=== PATIENT | female | born 1995 | race Caucasian/White ===

== ENCOUNTER 2020-03-31 14:56 | Emergency (ER) | payer OTHER ==
[~2020-03-31] VITALS: Ht 157.5 cm; Wt 63.7 kg
[2020-03-31] MEDS ORDERED: PREN1CHW6 PO (15:04)
[2020-03-31] MEDS ORDERED: ONDANSETRON 4MG/2ML VIAL IV ONE (16:15)
[2020-03-31] MEDS ORDERED: NS 1,000 ML IV ONE (16:15)
[2020-03-31 16:46] LABS: BASO # 0.1 10^3/uL (0.0-0.2); BASO % 0.5 % (0.0-1.0); EOS # 0.3 10^3/uL (0.0-0.5); EOS % 2.6 % (0.0-3.0); HEMATOCRIT 42.3 % (36.0-47.0); HEMOGLOBIN 13.8 g/dl (12.0-15.5); LYMPH % 18.4 % (24.0-44.0); MEAN CORPUSCULAR HEMOGLOBIN 28.5 pg (27.0-33.0); MEAN CORPUSCULAR HGB CONC 32.6 g/dl (32.0-36.5); MEAN CORPUSCULAR VOLUME 87.4 fl (80.0-96.0); MONO # 0.6 10^3/uL (0.0-0.8); MONO % 5.6 % (0.0-5.0); NEUTROPHILS # 7.9 10^3/uL (1.5-8.5); NEUTROPHILS % 72.5 % (36.0-66.0); PLATELET COUNT, AUTOMATED 251 10^3/uL (150-450); RED BLOOD COUNT 4.84 10^6/uL (4.00-5.40); WHITE BLOOD COUNT 10.9 10^3/uL (4.0-10.0)
[2020-03-31 17:33] LABS: ALBUMIN 3.6 GM/DL (3.2-5.2); ALT/SGPT 27 U/L (12-78); BILIRUBIN,DIRECT < 0.1 MG/DL (0.0-0.2); BILIRUBIN,TOTAL 0.5 MG/DL (0.2-1.0); BLOOD UREA NITROGEN 13 MG/DL (7-18); CALCIUM LEVEL 9.1 MG/DL (8.5-10.1); CARBON DIOXIDE LEVEL 27 MEQ/L (21-32); CHLORIDE LEVEL 104 MEQ/L (98-107); CREATININE FOR GFR 0.57 MG/DL (0.55-1.30); GLOMERULAR FILTRATION RATE > 60.0 (>60); GLUCOSE, FASTING 76 MG/DL (70-100); HCG, SERUM QUANTITATIVE 47019 MIU/ML; LIPASE 138 U/L (73-393); POTASSIUM SERUM 3.9 MEQ/L (3.5-5.1); SODIUM LEVEL 138 MEQ/L (136-145); TOTAL PROTEIN 7.2 GM/DL (6.4-8.2)
[2020-03-31] MEDS ORDERED: REGL10TA6 PO (17:58)
[2020-03-31 18:24] VITALS: BP 110/68
== END 2020-03-31 18:26 | disposition home or self-care (01) ==
LOC: M ED 14:56
DX: O21.9 Vomiting of pregnancy, unspecified (principal); Z3A.00 Weeks of gestation of pregnancy not specified
CPT/HCPCS: 80048; 80076; 81001; 83690; 84702; 85025; 87088; 87186; 96361; 96374; 99284; J2405

== ENCOUNTER 2020-08-02 19:13 | Outpatient (CLI) | payer OTHER ==
[~2020-08-02] VITALS: Ht 157.5 cm; Wt 79.0 kg
[~2020-08-02 19:13] MED LIST: PREN1CHW6 PO; REGL10TA6 PO
[2020-08-02] MEDS ORDERED: LR 1,000 ML IV ONE (19:55)
[2020-08-02 20:22] VITALS: BP 111/69
[2020-08-02 20:44] LABS: HEMATOCRIT 40.2 % (36.0-47.0); HEMOGLOBIN 13.3 g/dl (12.0-15.5); MEAN CORPUSCULAR HEMOGLOBIN 28.5 pg (27.0-33.0); MEAN CORPUSCULAR HGB CONC 33.1 g/dl (32.0-36.5); MEAN CORPUSCULAR VOLUME 86.1 fl (80.0-96.0); PLATELET COUNT, AUTOMATED 219 10^3/uL (150-450); RED BLOOD COUNT 4.67 10^6/uL (4.00-5.40); WHITE BLOOD COUNT 14.7 10^3/uL (4.0-10.0)
[2020-08-02 20:56] LABS: ALBUMIN 2.7 GM/DL (3.2-5.2); ALT/SGPT 34 U/L (12-78); BILIRUBIN,TOTAL 0.2 MG/DL (0.2-1.0); BLOOD UREA NITROGEN 12 MG/DL (7-18); CARBON DIOXIDE LEVEL 23 MEQ/L (21-32); CHLORIDE LEVEL 107 MEQ/L (98-107); CREATININE FOR GFR 0.55 MG/DL (0.55-1.30); GLOMERULAR FILTRATION RATE > 60.0 (>60); GLUCOSE, FASTING 81 MG/DL (70-100); POTASSIUM SERUM 4.1 MEQ/L (3.5-5.1); SODIUM LEVEL 139 MEQ/L (136-145); TOTAL PROTEIN 6.3 GM/DL (6.4-8.2)
[2020-08-02] MEDS ORDERED: LOPERAMIDE 2 MG CAPLET PO ONE (21:50)
[2020-08-02 22:00] VITALS: BP 132/75
[2020-08-02] MEDS ORDERED: LR 1,000 ML IV SCH (22:05)
--- NOTE | 2020-08-02 22:35 | IPNPDOC ---
Text Note Date of Service The patient was seen on 08/02/20. NOTE 24 yo at 30+1 weeks gestation presented to L&D with the complaint of dec reased movement, diarrhea, and intermittent cramping. She reports diarrhea since Sunday, worsening on Sunday, improving on Sunday, and then getting much much worse today. She reports 10 episodes of diarrhea today. She also reports not feeling her baby move as much as usual today and some pelvic cramping. She denies any fevers/chills, n/v, bleeding, discharge, or leakage of fluid. She also denies recent travel or sick contacts. Chaperoned by RN Vitals - VSS, afebrile, normotensive, non tachycardic General - Laying in bed, tired appeared, AAOX3 ABdomen - Gravid uterus. No fundal tenderess Pelvic - Normal external genitalia. Speculum inserted into the vagina and the cervix was visualized. FFN swab performed in posterior fornix. Speculum removed. Cervix closed/thick/high to digital exam. FHR tracing - Cat I tracing with moderate variability, +accels, no decels. Contractions regular, Q3-5 minutes apart. Ultimately spaced after several hours UA - dirty catch. 1+ leuk est. 7 wbcs. negative bacteria, negative nitrite CBC - WBC 14.7 CMP - unremarkable FFN - positive COVID19 - negative Patient given 2L during stay. Kept overnight for observation. Repeat cervical exam in the AM (~8 hours later) was unchanged at closed/thick/high. Contractions ultimately resolved after several hours. Loperamide given for diarrhea with improvement in symptoms (no further episodes of diarrhea). Suspect viral GI syndrome and dehydration as cause of symptoms. COVID-19 negati ve on PCR. No overt evidence of labor, especially in light of an unchanged cervix for 8 hours. Reassuring status. patient discharged with return precautions. All questions answered. 2 hours of patient care Aleksandra Kwon I+O Aleksandra ALANIS I+O Laboratory Tests 08/02/20 20:14 Vital Signs Date Time Temp Pulse Resp B/P (MAP) Pulse Ox O2 Delivery O2 Flow Rate FiO2 08/02/20 22:03 98.6 18 LILLIANA OLIVEIRA DO August 02, 2020 22:35
[2020-08-03 05:37] VITALS: BP 131/81
== END 2020-08-03 06:15 | disposition home or self-care (01) ==
LOC: M LDO 19:13
PROVIDERS: ATTEND Obstetrics & Gynecology
DX: O36.8130 Decreased fetal movements, third trimester, not applicable or unspecified (principal); Z3A.30 30 weeks gestation of pregnancy; O26.893 Other specified pregnancy related conditions, third trimester; R19.7 Diarrhea, unspecified; Z20.822 Contact with and (suspected) exposure to COVID-19
CPT/HCPCS: 59025; 80053; 81001; 82731; 85027; 87088; 96360; 96361; G0378; G0463; U0002

== ENCOUNTER 2020-09-07 17:55 | Inpatient (IN) | payer OTHER ==
[~2020-09-07] VITALS: Ht 157.5 cm; Wt 89.3 kg
[2020-09-07] VITALS (35 sets, daily range): BP systolic 113–246; BP diastolic 71–158
[2020-09-07] MEDS ORDERED: TUMS750C5 PO (18:19)
[2020-09-07] MEDS ORDERED: LR 1,000 ML IV ONE (18:40)
[2020-09-07] MEDS ORDERED: MAGNESIUM *L&D* 4GM/100ML BAG (40MG/ML) IV ONE ×2 (18:45→21:15)
[2020-09-07] MEDS ORDERED: BETAMETHASONE SOLUSPAN 6MG/ML 5ML VIAL (J0702 PER 3MG) IM SCH (18:45)
[2020-09-07] MEDS ORDERED: MAG Sulf (OBGYN) 20GM/500ML 20,000 MG in IV 1 EA IV SCH (18:50)
[2020-09-07] MEDS ORDERED: BICITRA 30ML SOLN UDC As Ordered ONE (18:56)
[2020-09-07] MEDS ORDERED: ceFAZolin 2 GM/D5W 50 ML IV BAG (J0690 PER 500MG) As Ordered ONE (18:57)
[2020-09-07] MEDS ORDERED: AZITHROMYCIN INJ 500MG VIAL (J0456 PER 500MG) As Ordered ONE (18:57)
[2020-09-07] MEDS ORDERED: BICITRA 30ML SOLN UDC PO ONE (19:00)
[2020-09-07] MEDS ORDERED: AZITHROMYCIN INJ 500 MG, VIAL MATE ADAPTER 1 EACH in NS 250 ML IV ONE (19:00)
[2020-09-07] MEDS ORDERED: ceFAZolin SOD 2 GM in IV 1 EA IV ONE (19:00)
[2020-09-07] MEDS ORDERED: ACETAMINOPHEN 650 MG SUPP PR SCH (19:00)
[2020-09-07] MEDS ORDERED: BUPIVACAINE HCL 0.25% 10ML VIAL SC SCH (19:05)
[2020-09-07] MEDS ORDERED: MORPHINE PRES-FREE INJ 10 MG/10 ML VIAL (J2274) As Ordered ONE (19:20)
[2020-09-07] MEDS ORDERED: OXYTOCIN 30 UNITS IN 0.9% NaCl 500ML IV BAG (J2590) As Ordered ONE (19:21)
--- NOTE | 2020-09-07 19:23 | REP ---
INDICATION: late decelerations 35 weeks need bpp efwt cervical length. COMPARISON: None. TECHNIQUE: Real-time sonographic evaluation of gravid uterus performed. FINDINGS: There is an intrauterine gestation, estimated gestational age is reportedly 35 weeks 2 days, EDC 10/10/2020. The heart rate is 161 beats per minute. The position is cephalic. The placenta is anterior and grade 3. There is no previa. The cervix is closed and measures 3.0 cm in length. Diffuse heterogeneous hypoechoic area behind the placenta does not demonstrate internal blood flow with Doppler evaluation. This appears to represent a diffuse retroplacental abruption. IMPRESSION: Live intrauterine gestation 35 weeks 2 days reported age. heart rate 161 beats per minute. There are findings most consistent with retro placental abruption/hemorrhage. Dr. Fisher was present for the ultrasound. <Electronically signed by Bryson Jean > 09/07/201918
[2020-09-07 19:27] LABS: HEMATOCRIT 41.2 % (36.0-47.0); HEMOGLOBIN 13.8 g/dl (12.0-15.5); MEAN CORPUSCULAR HEMOGLOBIN 28.8 pg (27.0-33.0); MEAN CORPUSCULAR HGB CONC 33.5 g/dl (32.0-36.5); MEAN CORPUSCULAR VOLUME 85.8 fl (80.0-96.0); PLATELET COUNT, AUTOMATED 212 10^3/uL (150-450); WHITE BLOOD COUNT 13.6 10^3/uL (4.0-10.0)
[2020-09-07] MEDS ORDERED: diphenhydrAMINE 50MG/ML VIAL (J1200) IV PRN (19:30)
[2020-09-07] MEDS ORDERED: ONDANSETRON 4MG/2ML VIAL IV PRN ×2 (19:30→21:05)
[2020-09-07] MEDS ORDERED: NALBUPHINE HCL 10 MG/ML AMP (J2300) IV PRN (19:30)
[2020-09-07] MEDS ORDERED: METOCLOPRAMIDE INJ 10MG/2ML VIAL (J2765 PER 1) IV PRN (19:30)
[2020-09-07] MEDS ORDERED: NALOXONE INJ 0.4MG/1ML VIAL (J2310 PER 1MG) IV PRN ×2 (19:30)
[2020-09-07 19:46] LABS: ALT/SGPT 16 U/L (12-78); BILIRUBIN,TOTAL 0.2 MG/DL (0.2-1.0); CREATININE FOR GFR 0.74 MG/DL (0.55-1.30); GLOMERULAR FILTRATION RATE > 60.0 (>60); LDH LACTATE DEHYDROGENASE 236 U/L (84-246)
[2020-09-07 20:10] LABS: CORD GAS ABE V -18.8; CORD GAS HCO3 V 13.3 MEQ/L; CORD GAS O2 SAT V 45.8 %; CORD GAS PCO2 V 56.6 mmHg; CORD GAS PO2 V 23.8 mmHg; CORD GAS SBC V 10.3 MEQ/L
[2020-09-07 20:12] LABS: CORD GAS ABE A -17.6; CORD GAS HCO3 A 15.9 MEQ/L; CORD GAS O2 SAT A 36.8 %; CORD GAS PCO2 A 73.3 mmHg; CORD GAS PO2 A 22.6 mmHg; CORD GAS SBC A 10.8 MEQ/L; CORD GAS TCO2 A 18.2 MEQ/L
[2020-09-07 20:16] LABS: CORD GAS PH V 6.988 UNITS
[2020-09-07 20:17] LABS: CORD GAS PH A 6.955 UNITS
[2020-09-07] MEDS ORDERED: MEASLES,MUMPS,RUBELLA VACCINE INJ (MMR-II) (90707) SC SCH (20:35)
[2020-09-07] MEDS ORDERED: ACETAMINOPHEN 650 MG SUPP PR PRN (20:35)
[2020-09-07] MEDS ORDERED: ACETAMINOPHEN TAB 650MG DOSE (2X325MG) PO PRN (20:35)
[2020-09-07] MEDS ORDERED: OXYTOCIN DRIP 30 UNITS in IV 1 EA IV SCH (20:35)
[2020-09-07] MEDS ORDERED: ANUSOL HC CREAM 30GM TOP PRN (20:35)
[2020-09-07] MEDS ORDERED: SIMETHICONE 80MG CHEW TAB PO PRN (20:35)
[2020-09-07] MEDS ORDERED: DOCUSATE SODIUM 100MG CAPSULE PO PRN (20:35)
[2020-09-07] MEDS ORDERED: RHOGAM 300 MCG (1500 IU) INJ (J2790) IM SCH (20:35)
[2020-09-07] MEDS ORDERED: METHYLERGONOVINE MALEATE 0.2 MG TAB PO PRN (20:35)
[2020-09-07] MEDS ORDERED: MOM 30ML SUSPENSION UDC PO PRN (20:35)
[2020-09-07] MEDS ORDERED: LABETALOL 100MG/20ML VIAL IV STA (20:43)
[2020-09-07] MEDS ORDERED: oxyCODONE 5MG TAB PO PRN (21:05)
[2020-09-07] MEDS ORDERED: fentaNYL 100 MCG/2 ML INJECTION (J3010) IV PRN (21:05)
[2020-09-07] MEDS ORDERED: KETOROLAC 30 MG/ML 1ML VIAL IV PRN (21:05)
[2020-09-07] MEDS ORDERED: MEPERIDINE INJ 25 MG/ML VIAL (J2175) As Ordered ONE (21:07)
[2020-09-07] MEDS: MEPERIDINE INJ 25 MG/ML VIAL (J2175) IV PRN ×2 (21:10→21:33)
--- NOTE | 2020-09-07 21:47 | HPEPDOC ---
Obstetrical History & Physical General Date of Admission Sep 07, 2020 at 18:43 NAME: KARINA LUONG DATE OF : 1995 AGE: 25 SEX: F REPORT #: [id number] ROOM: [facility] TECHNOLOGIST: SARA DOCTOR: Julian Fisher MD Ordered for Date&Time: 09/07/20 183 cc: [~ rep ct ivnm] Service Date&Time: 09/07/20 190 EXAMINATION REQUESTED: Obs. Limited, NORBERTO US REASON FOR PATIENT VISIT: LABOR REASON FOR EXAM/COMMENT: late decelerations 35 weeks need bpp efwt cervical length INDICATION: late decelerations 35 weeks need bpp efwt cervical length. COMPARISON: None. TECHNIQUE: Real-time sonographic evaluation of gravid uterus performed. FINDINGS: There is an intrauterine gestation, estimated gestational age is reportedly 35 weeks 2 days, EDC 10/10/2020. The heart rate is 161 beats per minute. The position is cephalic. The placenta is anterior and grade 3. There is no previa . The cervix is closed and measures 3.0 cm in length. Diffuse heterogeneous hypoechoic area behind the placenta does not demonstrate internal blood flow with Doppler evaluation. This appears to represent a diffuse retroplacental abruption. IMPRESSION: Live intrauterine gestation 35 weeks 2 days reported age. heart rate 161 beats per minute. There are findings most consistent with retro placental abruption/hemorrhage. Dr. Fisher was present for the ultrasound. <Electronically signed by Bryson Jean > 09/07/201918 DD: Bryson Jean MD, MD 09/07/201910 DT: ERIN 09/07/201918 Primary Care Physician: Julian Fisher MD History of Present Illness Chief Complaint: Contractions, pre-term Information Provided By: Patient Age: 24 : 1 Term: 0 Pre-term: 0 Abortions: 0 Livin Care Care: Good Care Number of Visits: 8 Dating Final EDC: Oct 10, 2020 Final EDC for Daily Update: Oct 10, 2020 Final EDC by: LMP LMP: Jan 04, 2020 1st Trimester Date: Mar 12, 2020 Weeks + Days: 9.5 Estimated Date of Confinement: Oct 10, 2020 EGA at Admission: 35.2 Antepartum Course Diagnos(e)s depression Height (inches): 62 Pre- weight (lbs.): 138 Admission Weight (lbs.): 191 Change in Weight (lbs.): 53 Past Medical History Past Obstetrical History : 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 history Past Medical History Medical History depression Surgical History: [place] teeth Family History Significant Family History: Hypertension Social History Social history non smoker no etoh no vaping no recreational drugs good support Marital Status: Family situation: Spouse/partner home Psychosocial History: Depression * Smoker: non-smoker Alcohol: Denies Abuse Violence Screening Have you been hit/kicked/slapp: No Have you been sexually assault: No Imunizations Tdap status: current Influenza Status: current Allergies Coded Allergies: No Known Allergies (Unverified , 03/31/20) Medications Scheduled Vit37/Iron/Folic Acid (Prenata Chewable Tablet) 1 Each Tab.chew, 1 TAB PO DAILY Scheduled PRN Calcium Carbonate (Tums) 300 Mg Tab.chew, 1 TAB PO Q6HP PRN for INDIGESTION Physical Examination Physical Examination GENERAL: Alert and oriented times three. BREAST: . ABDOMEN: Gravid and non-tender to touch. FETUS: Is vertex (VTX) by sterile vaginal examination (SVE), fetus is vertex (VTX) by Jean-Pierre. HEART RATE: Regular rate and rhythm. LUNGS: Clear to auscultation (CTA). EXTREMITIES: No edema. No clonus. Deep tendon reflexes (DTRs) + . Vital Signs/I&O Vital Signs Date Time Temp Pulse Resp B/P (MAP) Pulse Ox O2 Delivery O2 Flow Rate FiO2 09/07/20 18:10 98.8 66 20 137/84 (101) 98 Room Air Laboratory Data 24H LABS Laboratory Tests 2 09/07/20 18:39: Urine Color YELLOW, Urine Appearance CLOUDYH, Urine pH 6.0, Urine Specific [place] 1.024, Urine Protein 3+H, Urine Glucose (UA) NEGATIVE, Urine Ketones NEGATIVE, Urine Blood 1+H, Urine Nitrite NEGATIVE, Urine Bilirubin NEGATIVE, Urine Urobilinogen 0.2, Urine Leukocyte Esterase NEGATIVE, Urine WBC (Auto) 12H, Urine RBC (Auto) 3, Urine Hyaline Casts (Auto) 0, Urine Bacteria (Auto) NEGATIVE, Urine Squamous Epithelial Cells 18, Urine Mucus (Auto) SMALL, Urine Sperm (Auto) , Urine Random Creatinine 152.0, Urine Random Total Protein 1795.0H 09/07/20 18:41: Nucleated Red Blood Cells % (auto) 0.0, Glomerular Filtration Rate > 60.0, Uric Acid 8.0H, Total Bilirubin 0.2, Aspartate Amino Transf (AST/SGOT) 19, Alanine Aminotransferase (ALT/SGPT) 16, Lactate Dehydrogenase 236, Syphilis Serology N ONREACTIVE 09/07/20 19:46: Cord Arterial Blood pH 6.955*L, Cord Arterial Blood PCO2 73.3, Cord Arterial Blood PO2 22.6, Cord Arterial Blood HCO3 15.9, Cord Arterial Blood Total CO2 18.2, Cord Arterial Blood Base Excess -17.6, Cord Arterial Base Excess (Standard 10.8, Cord Arterial Bld Oxygen Saturation 36.8, Cord Venous Blood pH 6.988*L, Cord Venous Blood PCO2 56.6, Cord Venous Blood PO2 23.8, Cord Venous Blood HCO3 13.3, Cord Venous Blood Total CO2 15.0, Cord Venous Base Excess (Actual) -18.8, Cord Venous Base Excess (Standard) 10.3, Cord Venous Blood Oxygen Saturation 45. 8 CBC/BMP Laboratory Tests 09/07/20 18:41 Microbiology Microbiology 09/07/20 Urine Culture, Received Pending Pertinent Laboratoy Data Blood Type: B+ RBC Antibody Screen: Negative HIV: Negative Hepatitis B: Negative Hepatitis C: Negative Rapid Plasma Reagin: Nonreactive Rubella: Immune Varicella: Immune Chlamydia/Gonorrhea: Negative Group B Streptococcus: Negative Cystic Fibrosis: Negative Anatomy Ultrasound Normal Anatomy: Yes Placenta Previa: No Steroid Therapy Steroid Therapy: No Vaginal Examination Dilation: 2cm Effacement: 40% Station: -3 Cervical Consistency: Medium Cervical Position: Posterior Presentation: Cephalic presentation Position: Vertex (occiput) Assessment Heart Rate (FHR): 120 Variability: Minimal Accelerations: None Decelerations: Late Heart Patterns: Bradycardia Tocometer Contractions: Yes Frequency: regular, every 1-5 min. Duration: less than 60 seconds Strength: palpated as moderate Assessment/Plan Assessment 25-year-old (G)1 para (P0 at 35.3 weeks by [9.2 week ultrasound. Presents to Labor and Delivery (L&D) painful contractions . Plan Admit and orient. Services Mgr and consent. Diet: npo Group B Streptococcus (GBS) unknown Labs and intravenous (IV) per unit protocol. Counseled on Pitocin . Lactated Ringers (LR): Bolus 1000 mL, then at 125 mL/hr. Anticipate emergency cs for concealed abruptio C-S as appropriate. Labor and Delivery Counseling plan of care stat us at bedside r/out concealed abruptio, cbc cmp pre eclamptic work up prepare for emergency cs notify neonatology Julian Fisher MD Sep 07, 2020 21:45
--- NOTE | 2020-09-07 22:20 | DNPDOC ---
[facility] Delivery Note Delivery Note Item Value Date Time Cord Arterial Blood pH 6.955 UNITS *L 09/07/201945 Cord Arterial Blood PCO2 73.3 mmHg 09/07/201945 Cord Arterial Blood PO2 22.6 mmHg 09/07/201945 Cord Arterial Blood HCO3 15.9 MEQ/L 09/07/201945 Cord Arterial Blood Total CO2 18.2 MEQ/L 09/07/201945 Cord Arterial Blood Base Excess -17.6 09/07/201945 Cord Arterial Base Excess (Standard 10.8 MEQ/L 09/07/201945 Cord Arterial Bld Oxygen Saturation 36.8 % 09/07/201945 Cord Venous Blood pH 6.988 UNITS *L 09/07/201945 Cord Venous Blood PCO2 56.6 mmHg 09/07/201945 Cord Venous Blood PO2 23.8 mmHg 09/07/201945 Cord Venous Blood HCO3 13.3 MEQ/L 09/07/201945 Cord Venous Blood Total CO2 15.0 MEQ/L 09/07/201945 Cord Venous Base Excess (Actual) -18.8 09/07/201945 Cord Venous Base Excess (Standard) 10.3 MEQ/L 09/07/201945 Cord Venous Blood Oxygen Saturation 45.8 % 09/07/201945 DATE OF DELIVERY: 09/07/20 PREDELIVERY DIAGNOSIS: 35.4 weeks' gestation and labor. POST DELIVERY DIAGNOSIS: Delivered. PROCEDURE: emergency c/s abruptio placenta WARP PREPARER: Dr.e madeline velasquez ANESTHESIA: spinal and local ESTIMATED BLOOD LOSS: 500 ml mL. FINDINGS: 4pound 4 ounce female , Score 1/6/7 nuchal cord times x 1 DELIVERY SUMMARY: Patient is a 25-year-old 1 now para 1 who was admitted to labor and delivery for pre term abruptio placenta concealed Julian Fisher MD Sep 07, 2020 22:19
--- NOTE | 2020-09-07 22:56 | IPNPDOC ---
Text Note Date of Service Item Value Date Time Urine Random Creatinine 152.0 MG/DL 09/07/20 1839 Urine Random Total Protein 1795.0 MG/DL H 09/07/20 183 Item Value Date Time Urine Color YELLOW 09/07/20 183 Urine Appearance CLOUDY H 09/07/20 183 Urine pH 6.0 UNITS 09/07/20 183 Urine Specific [place] 1.024 09/07/20 183 Urine Protein 3+ mg/dL H 09/07/20 183 Urine Glucose (UA) NEGATIVE mg/dL 09/07/20 183 Urine Ketones NEGATIVE mg/dL 09/07/20 183 Urine Blood 1+ H 09/07/20 183 Urine Nitrite NEGATIVE 09/07/20 183 Urine Bilirubin NEGATIVE 09/07/201838 Urine Urobilinogen 0.2 mg/dL 09/07/201838 Urine Leukocyte Esterase NEGATIVE 09/07/20 183 Urine WBC (Auto) 12 /HPF H 09/07/20 183 Urine RBC (Auto) 3 /HPF 09/07/20 183 Urine Hyaline Casts (Auto) 0 /LPF 09/07/20 183 Urine Bacteria (Auto) NEGATIVE 09/07/20 183 Urine Squamous Epithelial Cells 18 /HPF 09/07/20 183 Urine Mucus (Auto) SMALL 09/07/20 183 Urine Random Creatinine 152.0 MG/DL 09/07/20 1839 Urine Random Total Protein 1795.0 MG/DL H 09/07/20 183 Item Value Date Time Creatinine 0.74 MG/DL 09/07/20 1841 Glomerular Filtration Rate > 60.0 09/07/20 1841 Uric Acid 8.0 MG/DL H 09/07/20 1841 Total Bilirubin 0.2 MG/DL 09/07/20 1841 Aspartate Amino Transf (AST/SGOT) 19 U/L 09/07/20 1841 Alanine Aminotransferase (ALT/SGPT) 16 U/L 09/07/20 1841 Lactate Dehydrogenase 236 U/L 09/07/20 1841 Item Value Date Time Bedside Glucose (Misc Panel) 102 MG/DL 09/07/202143 Bedside Glucose (Misc Panel) 72 MG/DL 09/07/202116 Bedside Glucose (Misc Panel) 59 MG/DL L 09/07/202100 Item Value Date Time Vital Signs Origin Phase I 09/07/202204 Vital Signs Origin Phase I 09/07/202209 Vital Signs Origin Phase I 09/07/202211 Vital Signs Origin Phase I 09/07/202214 Vital Signs Label Value Date Time Pulse 73 09/07/202204 Blood Pressure Assessment 175/82 (113) 09/07/202204 Bedside Pulse Oximetry 100 % 09/07/202204 Pulse 68 09/07/202209 Blood Pressure Assessment 207/100 (135) 09/07/202209 Bedside Pulse Oximetry 99 % 09/07/202209 Blood Pressure Assessment 171/96 (121) 09/07/202211 Pulse 75 09/07/202214 Bedside Pulse Oximetry 99 % 09/07/202214 Pulse 67 09/07/202219 Blood Pressure Assessment 177/97 (123) 09/07/202223 The patient was seen on 09/07/20. NOTE Called back to pac u re patient immediately post op rigors shaking violently , semi responsive reviewed vital signs bp and p and respirations normal chest clear,minimal reflexes no pain no cardiac issues noted. did blood sugars finger stick 59 gave glucose redid sugar now 74 more glucose 102 now feeling better awake alert responsive to questions no shaking now. plan of care involves iv mag due to elevated uric acid at 8 p/c ratio 11.01 all other chemestries normal . had sever range blood pressures will place on bp protocol 20 mg iv labetalol if bp 160/100 monitor in and out planned repeat blood work in am ZEKE,Aleksandra, I+O VSAleksandra, I+O Laboratory Tests 09/07/20 18:41 Vital Signs Date Time Temp Pulse Resp B/P (MAP) Pulse Ox O2 Delivery O2 Flow Rate FiO2 09/07/20 18:10 98.8 66 20 137/84 (101) 98 Room Air Julian Fisher MD Sep 07, 2020 22:50
[2020-09-07] MEDS: LR 1,000 ML IV SCH (23:39)
[2020-09-07] MEDS: KETOROLAC 30 MG/ML 1ML VIAL IV SCH (23:40)
[2020-09-08] VITALS (36 sets, daily range): BP systolic 127–166; BP diastolic 73–109
[2020-09-08] MEDS ORDERED: LABETALOL 100MG/20ML VIAL IV STA (00:10)
[2020-09-08] MEDS: MAG Sulf (OBGYN) 20GM/500ML 20,000 MG in IV 1 EA IV SCH ×3 (00:19→19:43)
[2020-09-08] MEDS: KETOROLAC 30 MG/ML 1ML VIAL IV SCH ×3 (05:47→17:32)
--- NOTE | 2020-09-08 05:58 | IPNPDOC ---
Text Note Date of Service Intake & Output Label Value Date Time Total Out 875 ml 09/08/20 0000(24 hrs) Total Out 1000 ml 09/07/20 0000(24 hrs) Total In 817 ml 09/08/20 0000(24 hrs) Total In 1050 ml 09/07/20 0000(24 hrs) Output, Urine Amount 875 ml 09/08/20 0000(24 hrs) Output, Estimated Blood Loss Amount 1000 ml 09/07/20 0000(24 hrs) Intake, IV Amount 817 ml 09/08/20 0000(24 hrs) Intake, IV Amount 1050 ml 09/07/20 0000(24 hrs) Item Value Date Time Patient Weight 89.3 kg 09/07/20 1804 Vital Signs Label Value Date Time Patient Temperature 98.4 degrees F 09/08/20 0426 Temperature Source Temporal 09/08/20 0426 Pulse 93 09/08/20 0426 Respiratory Rate 20 bpm 09/08/20 0426 Blood Pressure Assessment 135/79 (97) 09/08/20 0426 Source Automatic Cuff (NIBP) Blood Pressure Assessment 140/83 (102) 09/08/20 0400 Source Automatic Cuff (NIBP) Pulse 100 09/08/20 0400 Blood Pressure Assessment 141/80 (100) 09/08/20 0326 Source Automatic Cuff (NIBP) Pulse 90 09/08/20 0326 Pulse 93 09/08/20 0256 Blood Pressure Assessment 134/79 (97) 09/08/20 0256 Source Automatic Cuff (NIBP) Blood Pressure Assessment 138/73 (94) 09/08/20 0226 Source Automatic Cuff (NIBP) Pulse 92 09/08/20 0156 Blood Pressure Assessment 157/93 (114) 09/08/20 0156 Source Automatic Cuff (NIBP) Pulse 93 09/08/20 0126 Blood Pressure Assessment 153/88 (109) 09/08/20 0126 Source Automatic Cuff (NIBP) Respiratory Rate 20 bpm 09/08/20 0125 Patient Temperature 99.2 degrees F 09/08/20 0125 Blood Pressure Assessment 150/95 (113) 09/08/20 0112 Source Automatic Cuff (NIBP) Pulse 91 09/08/20 0112 Blood Pressure Assessment 154/92 (112) 09/08/20 0111 Source Automatic Cuff (NIBP) Blood Pressure Assessment 161/87 (111) 09/08/20 0056 Source Automatic Cuff (NIBP) Pulse 94 09/08/20 0056 Blood Pressure Assessment 154/95 (114) 09/08/20 0040 Source Automatic Cuff (NIBP) Pulse 95 09/08/20 0040 Blood Pressure Assessment 155/98 (117) 09/08/20 0026 Source Automatic Cuff (NIBP) Pulse 102 09/08/20 0026 Blood Pressure Assessment 155/93 (113) 09/08/20 0022 Source Automatic Cuff (NIBP) Pulse 95 09/08/20 0022 Pulse 91 09/08/20 0017 Blood Pressure Assessment 157/91 (113) 09/08/20 0017 Source Automatic Cuff (NIBP) Blood Pressure Assessment 161/87 09/08/20 0013 Pulse 116 09/08/20 0013 Pulse 92 09/08/20 0009 Blood Pressure Assessment 161/87 (111) 09/08/20 0009 Source Automatic Cuff (NIBP) Pulse 96 09/08/20 0007 Blood Pressure Assessment 166/109 (128) 09/08/20 0007 Source Automatic Cuff (NIBP) Blood Pressure Assessment 163/81 (108) 09/07/20 2352 Source Automatic Cuff (NIBP) Pulse 96 09/07/20 2352 Pulse 84 09/07/20 2338 Blood Pressure Assessment 177/84 (115) 09/07/20 2338 Source Automatic Cuff (NIBP) Blood Pressure Assessment 136/96 (109) 09/07/20 2323 Source Automatic Cuff (NIBP) Pulse 80 09/07/20 2323 Patient Temperature 99.2 degrees F 09/07/20 2322 Temperature Source Temporal 09/07/20 2322 Blood Pressure Assessment 152/106 (121) 09/07/20 2315 Source Automatic Cuff (NIBP) Pulse 90 09/07/20 2315 Blood Pressure Assessment 156/91 (112) 09/07/20 2310 Source Automatic Cuff (NIBP) Pulse 76 09/07/20 2310 Blood Pressure Assessment 161/96 (117) 09/07/20 2305 Source Automatic Cuff (NIBP) Pulse 75 09/07/20 2305 Pulse 74 09/07/20 2300 Blood Pressure Assessment 161/90 (113) 09/07/20 2300 Source Automatic Cuff (NIBP) Blood Pressure Assessment 164/96 (118) 6/8/21 2254 Source Automatic Cuff (NIBP) Blood Pressure Assessment 164/96 09/07/202253 Pulse 64 09/07/202238 Blood Pressure Assessment 157/90 (112) 09/07/202238 Source Automatic Cuff (NIBP) Pulse 67 09/07/202219 Blood Pressure Assessment 177/97 (123) 09/07/202223 Bedside Pulse Oximetry 99 % 09/07/202214 Blood Pressure Assessment 171/96 (121) 09/07/202211 Source Automatic Cuff (NIBP) Blood Pressure Assessment 171/96 (121) 09/07/202211 Pulse 71 09/07/202211 Blood Pressure Assessment 207/100 (135) 09/07/202209 Blood Pressure Assessment 207/100 (135) 09/07/202209 Source Automatic Cuff (NIBP) Blood Pressure Assessment 175/82 (113) 09/07/202204 Source Automatic Cuff (NIBP) Blood Pressure Assessment 175/82 (113) 09/07/202204 Blood Pressure Assessment 169/79 (109) 09/07/202201 Source Automatic Cuff (NIBP) Pulse 79 09/07/202 Blood Pressure Assessment 169/79 (109) 09/07/202 Pulse 75 09/07/202200 Blood Pressure Assessment 191/81 (117) 09/07/202200 Blood Pressure Assessment 191/81 (117) 09/07/202200 Source Automatic Cuff (NIBP) Bedside Pulse Oximetry 100 % 09/07/202200 Blood Pressure Assessment 181/82 (115) 09/07/202152 Blood Pressure Assessment 181/82 (115) 09/07/202152 Source Automatic Cuff (NIBP) Blood Pressure Assessment 168/94 (118) 09/07/202149 Source Automatic Cuff (NIBP) Blood Pressure Assessment 168/94 (118) 09/07/202149 Blood Pressure Assessment 169/109 (129) 09/07/202144 Blood Pressure Assessment 169/109 (129) 09/07/202144 Source Automatic Cuff (NIBP) The patient was seen on 09/08/20. NOTE history of concealed abruptio at 35.2 weeks resulting in emergency cs. patient declared to be preeclampsia with p/c ratio 11.01 and uric acid 8.0 superimposed was hypoglycemia of 59 on fingerstick. this am doing better diuresis taking place, bp in mid range area had 2 bp at severe range , given labetalol x 2 doses iv.presently alert orientated pain controlled . plan start on po labetalol continue magnesium protocol. VS,Fishbone, I+O VS, Fishbone, I+O Laboratory Tests 09/07/20 18:41 Vital Signs Date Time Temp Pulse Resp B/P (MAP) Pulse Ox O2 Delivery O2 Flow Rate FiO2 09/08/20 04:26 98.4 93 20 135/79 (97) 09/07/20 23:22 Room Air 09/07/20 22:15 99 I&O- Last 24 Hours up to 6 AM 09/08/20 06:00 Intake Total 1867 ml Output Total 1875 ml Balance -8 ml Julian Fisher MD Sep 08, 2020 05:53
[2020-09-08 07:49] LABS: HEMATOCRIT 40.4 % (36.0-47.0); HEMOGLOBIN 13.4 g/dl (12.0-15.5); MEAN CORPUSCULAR HEMOGLOBIN 28.2 pg (27.0-33.0); MEAN CORPUSCULAR HGB CONC 33.2 g/dl (32.0-36.5); MEAN CORPUSCULAR VOLUME 84.9 fl (80.0-96.0); PLATELET COUNT, AUTOMATED 233 10^3/uL (150-450); RED BLOOD COUNT 4.76 10^6/uL (4.00-5.40)
[2020-09-08] MEDS: LR 1,000 ML IV SCH ×3 (07:53→18:40)
[2020-09-08 08:10] LABS: ALBUMIN 1.9 GM/DL (3.2-5.2); ALT/SGPT 19 U/L (12-78); BILIRUBIN,TOTAL 0.3 MG/DL (0.2-1.0); BLOOD UREA NITROGEN 15 MG/DL (7-18); CALCIUM LEVEL 7.6 MG/DL (8.5-10.1); CARBON DIOXIDE LEVEL 19 MEQ/L (21-32); CHLORIDE LEVEL 103 MEQ/L (98-107); CREATININE FOR GFR 0.83 MG/DL (0.55-1.30); GLOMERULAR FILTRATION RATE > 60.0 (>60); GLUCOSE, FASTING 114 MG/DL (70-100); MAGNESIUM LEVEL 6.7 MG/DL (1.8-2.4); POTASSIUM SERUM 4.3 MEQ/L (3.5-5.1); SODIUM LEVEL 134 MEQ/L (136-145); TOTAL PROTEIN 5.1 GM/DL (6.4-8.2)
[2020-09-08] MEDS: LABETALOL 100MG TAB PO SCH ×2 (08:32→20:18)
[2020-09-08] MEDS ORDERED: PRENATAL VITAMINS CHEWABLE TABLET PO SCH (09:00)
--- NOTE | 2020-09-08 11:53 | RO ---
OPERATIVE NOTE DATE OF OPERATION: 09/07/2020 PREOPERATIVE DIAGNOSES: 1. labor, 35 and 2 weeks of gestation. 2. Concealed abruptio placentae. 3. Significant pre-E. POSTOPERATIVE DIAGNOSES: 1. labor, 35 and 2 weeks of gestation. 2. Concealed abruptio placentae. 3. Significant pre-E. OPERATION PROPOSED: Emergency section. OPERATION PERFORMED: Emergency section. SURGEON: Julian Fisher MD. EXTRACTOR PLANT OPERATOR: Dr. Dobson for extraction, retraction, and visualization without which the procedure could not be completed. ANESTHESIA: Spinal plus local anesthetic for intraperitoneal procedures. ESTIMATED BLOOD LOSS: 500 to 700 mL. DESCRIPTION OF PROCEDURE: After adequate time out, prepped and draped in the supine position. Mota catheter and the bladder draining clear urine. Squentials in place. Appropriate antibiotics preoperatively. A Pfannenstiel incision was made two fingerbreadths above the symphysis pubis passing through abdominal layers. Securing hemostasis and opening the peritoneal cavity, the Mobius was placed. The bladder was reflected down anteriorly. Low transverse incision into the uterus. There was clear fluid. The baby was in the face position, and the cord was around the neck. We delivered a live female infant, 1940 grams, 4 pounds 4 ounces, Apgars of 1, 6, 7 at one, five, and ten minutes respectively. Dr. Wei in attendance for resuscitation. The placenta came out immediately thereafter. Three vessels in the cord. A massive amount of clots, approximately 500 mL, and the placenta was barely hanging on by a small piece of the placenta. The uterine cavity was swept clear, and then with the instrument and pad counts correct, 5 units of IV Pitocin push, 30 units of Pitocin running, the uterus was closed with a running stitch for the first layer imbricating the second layer reperitonealization. With instrument and pad counts correct, both ovaries and tubes appeared to be normal. Any excess of clots were removed. With that done, the abdomen was then closed, running stitch for the peritoneum, same for the fascia, interrupted for subcu, and Dexon to the skin. Marcaine 0.25% 10 mL subcuticularly. An Optifoam dressing was placed. Then the patient was put in lithotomy position. Some clots were expressed from the uterus. Acetaminophen suppository 1300 mg per rectum was placed, and Cytotec 1,000 mg per rectum was placed in order to maintain contractility of the uterus. With instrument and pad counts correct, the patient was sent to recovery in good condition. Baby was in the NICU. Arterial pH was 7.95, base excess -17.6. Venous pH 6.98, base excess -18.8. cc: [place] [facility]
[2020-09-08] MEDS ORDERED: SIMETHICONE 80MG CHEW TAB PO PRN (23:35)
[2020-09-09] VITALS (7 sets, daily range): BP systolic 111–156; BP diastolic 66–96
[2020-09-09] MEDS: IBUPROFEN 600MG TAB PO PRN (01:08)
[2020-09-09] MEDS: PERCOCET 5MG/325MG TAB PO PRN ×3 (03:09→16:24)
--- NOTE | 2020-09-09 07:11 | IPNPDOC ---
Progress Note Date of Service: Sep 09, 2020 Day#: 2 Progress Note SUBJECT: Ms. Sanz is a 25yo POD2 s/p emergent PLTCD in the setting of placental abruption. She was subsequently found to have severe range blood pressures requiring IV medications and was put on magnesium for seizure prevention. She is now s/p 24h of magnesium which was stopped at 2300 last night. She is currently on labetalol 100mg BID for blood pressure control. She notably had seizure like activity shortly after her surgery but it was associated with an episode of hypoglycemia. She has been ambulating, voiding spontaneously without issue and tolerating regular diet. Breast feeding without issue. Reports lochia is like a normal period. Patient is ambulating well. Reports some cramping with . Denies any pain. Voiding and stooling without difficulty. OBJECTIVE: VITAL SIGNS: Within normal limits, afebrile. Alert and oriented times three. Breath sounds clear to auscultation. Heart rate: Regular rate and rhythm, no murmurs, rubs or gallops. Abdomen: Fundus firm at U-2. Soft, NTTP. Pfannenstiel incision is covered with optifoam with minimal/unchanged strikethrough. Minimal lochia. ASSESSMENT: Ms. Sanz is a 25yo POD2 s/p emergent PLTCD in the setting of placental abruption. She was subsequently found to have severe range blood pressures requiring IV medications and was put on magnesium for seizure prevention. She is now s/p 24h of magnesium which was stopped at 2300 last night. She is currently on labetalol 100mg BID for blood pressure control. She notably had seizure like activity shortly after her surgery but it was associated with an episode of hypoglycemia. Other than an elevated P:C she has had normal pre-eclampsia labs. She has since been normotensive to mild range and denies si/sx of pre-eclampsia. She is meeting all post-operative goals. Note: the post-operative seizure like activity is concerning for eclampsia but question remains as hypoglycemia is not. Hypoglycemia can cause activity that appears like a seizure. Hypoglycemia in a clinic picture associated with pre- eclampsia is concerning for AFLD of but the patient has normal LFTs and no RUQ pain. Patient is now normoglycemic and asymptomatic. Will continue to closely monitor. PLAN: 1. Discharge to home likely 72h after delivery for extended blood pressure prakash toring. 2. Tylenol and Motrin for pain. Oxycodone for breakthrough. 3. Encourage breast feeding and ambulation. 4. Desires interval nexplanon for contraception. 5. Routine PP visit in 2 and 6 weeks in clinic. Plan for 72h and 7d BP checks. 6. Continue labetalol 100mg BID until 6 wks . VS, I&O, 24H, Fishbone Vital Signs/I&O Vital Signs Date Time Temp Pulse Resp B/P (MAP) Pulse Ox O2 Delivery O2 Flow Rate FiO2 09/09/20 05:54 97.7 78 14 111/66 (81) 97 Room Air I&O- Last 24 Hours up to 6 AM 09/09/20 06:00 Intake Total 4094 ml Output Total 4430 ml Balance -336 ml Laboratory Data 24H LABS Laboratory Tests 2 09/08/20 07:25: Nucleated Red Blood Cells % (auto) 0.0, Anion Gap 12, Glomerular Filtration Rate > 60.0, Calcium Level 7.6L, Magnesium Level 6.7*H, Total Bilirubin 0.3, Aspartate Amino Transf (AST/SGOT) 24, Alanine Aminotransferase (ALT/SGPT) 19, Alkaline Phosphatase 149H, Total Protein 5.1L, Albumin 1.9L, Albumin/Globulin Ratio 0.6L CBC/BMP Laboratory Tests 09/08/20 07:25 Microbiology Microbiology 09/07/20 Urine Culture - Final, Complete Lactobacillus Species ANKITA THACKER DO Sep 09, 2020 07:11
[2020-09-09] MEDS: LABETALOL 100MG TAB PO SCH ×2 (08:45→20:59)
[2020-09-09] MEDS: PRENATAL VITAMINS CHEWABLE TABLET PO SCH (08:45)
[2020-09-09] MEDS: ACETAMINOPHEN 500 MG TAB PO PRN (23:28)
[2020-09-10 02:00] VITALS: BP 128/61
[2020-09-10 06:00] VITALS: BP 131/73
[2020-09-10] MEDS: ACETAMINOPHEN 500 MG TAB PO PRN ×2 (06:14→13:50)
[2020-09-10] MEDS ORDERED: IBUP-1022 PO (06:37)
[2020-09-10] MEDS ORDERED: PERCOCET PO (06:37)
[2020-09-10] MEDS ORDERED: LABE100T4 PO (06:37)
--- NOTE | 2020-09-10 06:45 | DS.PDOC ---
Discharge Summary General Date of Admission Sep 07, 2020 at 18:43 Date of Discharge September 10, 2020 Discharge Summary HOSPITAL COURSE: Ms. Sanz is a 25 yo G1 now P1 who underwent an uncomplicated, emergent PLTCS on 07Sep2020 at 35 weeks after presenting to L&D with a placental abruption, Cat III tracing, and severe pre eclampsia. Baby was transferred to the NICU after delivery. She received 24 hours of IV magnesium for seizure prophylaxis. Her BP was controlled with 100mg PO labetalol. She recovered well ultimately . On her day of discharge she met all appropriate discharge criteria. She was ambulating, voiding, tolerating a regular diet, had minimal lochia, and her pain was well controlled with PO pain medications. On her day of discharge she denied any headaches, RUQ pain, or visual changes. BP was stable on 100mg BID labetalol. DISCHARGE MEDICATIONS: Please see below. ALLERGIES: Please see below. PHYSICAL EXAMINATION ON DISCHARGE: VITAL SIGNS: Please see below. GENERAL: AAOX3, NAD ABDOMINAL EXAMINATION: Fundus firm at U-2. No fundal tenderness. Incision covered with optifoam dressing. Well appearing with no strikethrough. No tenderness to palpation. EXTREMITIES: 1+ edema in lower extremities PSYCHIATRIC EXAMINATION: Affect appropriate LABORATORY DATA: Please see below. ACTIVITY: Pelvic rest for 6 weeks. No heavy lifting for six weeks. DIET: Regular DISCHARGE PLAN: Discharge home or to boarder status. DISPOSITION: Discharge home or to boarder status on 10Sep2020. DISCHARGE INSTRUCTIONS: 1. Nothing in the vagina for 6 weeks 2. No heavy lifting for 6 weeks ITEMS TO FOLLOWUP ON ON OUTPATIENT: 1. Follow up at [facility] on Sunday, 13Sep2020 for a walk in BP check at any time 2. transmission supervisor medications at the [facility]. DISCHARGE CONDITION: Stable. TIME SPENT ON DISCHARGE: Greater than 20 minutes. Lilliana Mayorga DO Vital Signs/I&Os Vital Signs Date Time Temp Pulse Resp B/P (MAP) Pulse Ox O2 Delivery O2 Flow Rate FiO2 09/10/20 06:00 98.8 74 18 131/73 (92) 99 Room Air Microbiology Microbiology 09/07/20 Urine Culture - Final, Complete Lactobacillus Species Discharge Medications Scheduled Labetalol HCl (Labetalol HCl) 100 Mg Tablet, 100 MG PO BID Vit37/Iron/Folic Acid ([place]ata Chewable Tablet) 1 Each Tab.chew, 1 TAB PO DAILY, (Reported) Scheduled PRN Calcium Carbonate (Tums) 300 Mg Tab.chew, 1 TAB PO Q6HP PRN for INDIGESTION, (Reported) Ibuprofen (Ibuprofen) 600 Mg Tablet, 600 MG PO Q6HP PRN for PAIN LEVEL 1-5 Oxycodone/Acetaminophen (Oxycodone-Acetaminophen 5-325) 1 Each Tablet, 1 TAB PO Q4H PRN for SEVERE PAIN (PS 7-10) Allergies Coded Allergies: No Known Allergies (Unverified , 03/31/20) LILLIANA MAYORGA DO Sep 10, 2020 06:45
[2020-09-10 08:45] VITALS: BP 141/94
[2020-09-10] MEDS: PRENATAL VITAMINS CHEWABLE TABLET PO SCH (08:45)
[2020-09-10] MEDS: LABETALOL 100MG TAB PO SCH (08:45)
[2020-09-10] MEDS: IBUPROFEN 600MG TAB PO PRN (11:52)
== END 2020-09-10 18:10 | disposition home or self-care (01) | DRG 771 ==
LOC: M LDO 17:55 → M LDI 18:43 → M OBS 09-09 00:03
PROVIDERS: ADMIT Obstetrics & Gynecology; ATTEND Obstetrics & Gynecology
PROC: 10D00Z1 Extraction of Products of Conception, Low, Open Approach (ICD-10-PCS; principal; 2020-09-07 19:17)
DX: O60.14X0 Preterm labor third trimester with preterm delivery third trimester, not applicable or unspecified (principal); O45.93 Premature separation of placenta, unspecified, third trimester; Z3A.35 35 weeks gestation of pregnancy; Z37.0 Single live birth; O14.14 Severe pre-eclampsia complicating childbirth; O99.284 Endocrine, nutritional and metabolic diseases complicating childbirth; E16.2 Hypoglycemia, unspecified